=== PATIENT | female | born 1955 | race Asian ===

== ENCOUNTER 2017-11-14 16:34 | Emergency (ER) | payer MEDICARE ==
[~2017-11-14] VITALS: Ht 167.6 cm; Wt 77.3 kg
[2017-11-14] MEDS ORDERED: METF500T6 PO (16:54)
[2017-11-14] MEDS ORDERED: SODIUM CHLORIDE 0.9% 1,000 ML IV ONE (17:30)
[2017-11-14 17:55] LABS: BASOPHILS % (AUTO) 0.6 % (0.0-2.0); EOSINOPHILS % (AUTO) 0.6 % (1.0-6.0); HEMOGLOBIN 11.9 g/dL (12.0-16.0); LYMPHOCYTES # (AUTO) 1.4 K/uL (1.0-4.8); LYMPHOCYTES % (AUTO) 17.4 % (22.0-44.0); MEAN CORPUSCULAR HEMOGLOBIN 29.6 pg (26.0-34.0); MEAN CORPUSCULAR HGB CONC 35.1 G/dL (31.0-37.0); MEAN CORPUSCULAR VOLUME 84 fL (80-100); MONOCYTES # (AUTO) 0.7 K/uL (0.1-1.0); MONOCYTES % (AUTO) 9.5 % (2.0-9.0); NEUTROPHILS # (AUTO) 5.6 K/uL (1.8-7.7); NEUTROPHILS % (AUTO) 71.9 % (40.0-70.0); PLATELET COUNT (AUTO) 184 K/uL (150-450); RED BLOOD CELL COUNT(AUTO) 4.03 MIL/uL (4.00-5.20); RED CELL DISTRIBUTION WIDTH 15.3 % (11.5-14.5)
[2017-11-14 18:09] LABS: ANION GAP 15 mmol/L (8-16); CALCIUM, TOTAL 8.9 mg/dL (8.8-10.5); CARBON DIOXIDE 22 mmol/L (22-29); CHLORIDE 104 mmol/L (98-107); CREATININE 0.91 mg/dL (0.60-1.30); GLOMERULAR FILTR. RATE CALC > 60 mL/min (>60); GLUCOSE,RANDOM 74 mg/dL (70-110); POTASSIUM 4.1 mmol/L (3.5-5.1); SODIUM SERUM 141 mmol/L (136-145); UREA NITROGEN, BLOOD 18 mg/dL (7-18)
[2017-11-14 18:34] LABS: ALANINE AMINOTRANSFERASE 30 U/L (12-78); ALBUMIN 3.3 g/dL (3.4-5.0); ALKALINE PHOSPHATASE 47 U/L (46-116); ASPARTATE AMINOTRANSFERASE 37 U/L (15-37); BILIRUBIN,TOTAL 0.4 mg/dL (0.1-1.0); CKMB RELATIVE INDEX 3.1 % (0.0-4.0); CREATINE KINASE MB 8.4 ng/mL (0-5); CREATINE KINASE, TOTAL 272 U/L (26-192); TOTAL PROTEIN, SERUM 6.1 g/dL (6.4-8.2)
[2017-11-14 19:48] VITALS: BP 129/68
[2017-11-16 10:22] LABS: GLUCOSE,POINT OF CARE 85 MG/DL (70-110)
== END 2017-11-14 20:35 | disposition home or self-care (01) ==
LOC: EMS 17:01
DX: E86.0 Dehydration (principal); E11.9 Type 2 diabetes mellitus without complications; Z79.899 Other long term (current) drug therapy; W18.09XA Striking against other object with subsequent fall, initial encounter; Y93.89 Activity, other specified; Y92.89 Other specified places as the place of occurrence of the external cause; Y99.8 Other external cause status
CPT/HCPCS: 36415; 70450; 71045; 72125; 80053; 82550; 82553; 82962; 84484; 85025; 85730; 93005; 99285; J7030

== ENCOUNTER 2018-05-25 12:44 | Emergency (ER) | payer MEDICAID, MEDICARE ==
[~2018-05-25] VITALS: Ht 160 cm; Wt 61.6 kg
[~2018-05-25 12:44] MED LIST: METF-960 PO
[2018-05-25] MEDS ORDERED: PIMA10TA PO (14:06)
[2018-05-25 15:19] LABS: GLUCOSE,POINT OF CARE 147 MG/DL (70-110)
[2018-05-25 16:30] LABS: APPEARANCE,URINE CLOUDY (CLEAR); GLUCOSE, URINE (UA) NEGATIVE (NEGATIVE); KETONES,URINE 40 mg/dL (NEGATIVE); LEUKOCYTE ESTERASE ,URINE LARGE (NEGATIVE); NITRATE,URINE NEGATIVE (NEGATIVE); OCCULT BLOOD,URINE NEGATIVE (NEGATIVE); PROTEIN,URINE TRACE (NEGATIVE)
[2018-05-25 16:36] LABS: BILIRUBIN,URINE PRELIM. POSITIVE (NEGATIVE)
[2018-05-25 16:45] VITALS: BP 129/72
[2018-05-25 16:57] LABS: BACTERIA,URINE Few /HPF (None Seen); RBC,URINE 0-2 /HPF (0-2); SQUAMOUS EPITHELIAL CELL,UR Many /LPF (None Seen); WBC,URINE 51-100 /HPF (0-5)
[2018-05-25] MEDS ORDERED: CLON-570 PO (21:12)
[2018-05-25] MEDS ORDERED: GABA600T10 PO (21:12)
[2018-05-25] MEDS ORDERED: TRAZ300T2 PO (21:12)
[2018-05-25] MEDS ORDERED: GLIP5TAB11 PO (21:12)
[2018-05-25] MEDS ORDERED: ATOR40TA71 PO (21:12)
== END 2018-05-25 18:01 | disposition left against medical advice (07) ==
LOC: EMS 12:44
DX: M54.5 Low back pain (principal); E11.9 Type 2 diabetes mellitus without complications; F20.9 Schizophrenia, unspecified; F31.9 Bipolar disorder, unspecified; Z79.84 Long term (current) use of oral hypoglycemic drugs; Z79.899 Other long term (current) drug therapy
CPT/HCPCS: 72100; 72220; 87086

== ENCOUNTER 2018-05-25 20:35 | Emergency (ER) | payer MEDICAID ==
[~2018-05-25] VITALS: Ht 167.6 cm; Wt 68.2 kg
[~2018-05-25 20:35] MED LIST changes: +PIMA10TA PO
[2018-05-25 21:05] VITALS: BP 112/70
[2018-05-25] MEDS ORDERED: CLON-570 PO (21:12)
[2018-05-25] MEDS ORDERED: GABA600T10 PO (21:12)
[2018-05-25] MEDS ORDERED: ATOR40TA71 PO (21:12)
[2018-05-25] MEDS ORDERED: GLIP5TAB11 PO (21:12)
[2018-05-25] MEDS ORDERED: TRAZ300T2 PO (21:12)
[2018-05-25 21:23] LABS: BASOPHILS % (AUTO) 0.6 % (0.0-2.0); EOSINOPHILS % (AUTO) 0.3 % (1.0-6.0); HEMATOCRIT 36.9 % (36-46); HEMOGLOBIN 12.9 g/dL (12.0-16.0); LYMPHOCYTES % (AUTO) 16.6 % (22.0-44.0); MEAN CORPUSCULAR HEMOGLOBIN 27.7 pg (26.0-34.0); MEAN CORPUSCULAR HGB CONC 34.9 G/dL (31.0-37.0); MEAN CORPUSCULAR VOLUME 79 fL (80-100); MONOCYTES # (AUTO) 0.7 K/uL (0.1-1.0); MONOCYTES % (AUTO) 11.3 % (2.0-9.0); NEUTROPHILS # (AUTO) 4.5 K/uL (1.8-7.7); NEUTROPHILS % (AUTO) 71.2 % (40.0-70.0); PLATELET COUNT (AUTO) 259 K/uL (150-450); RED BLOOD CELL COUNT(AUTO) 4.64 MIL/uL (4.00-5.20); RED CELL DISTRIBUTION WIDTH 17.9 % (11.5-14.5)
[2018-05-25 21:38] LABS: ANION GAP 11 mmol/L (8-16); CALCIUM, TOTAL 9.9 mg/dL (8.8-10.5); CARBON DIOXIDE 27 mmol/L (22-29); CHLORIDE 101 mmol/L (98-107); CREATININE 0.92 mg/dL (0.60-1.30); GLOMERULAR FILTR. RATE CALC > 60 mL/min (>60); GLUCOSE,RANDOM 215 mg/dL (70-110); POTASSIUM 3.2 mmol/L (3.5-5.1); SODIUM SERUM 139 mmol/L (136-145); UREA NITROGEN, BLOOD 24 mg/dL (7-18)
[2018-05-25 21:39] LABS: TROPONIN I 0.12 ng/mL (0.00-0.05)
[2018-05-25 21:40] LABS: AMMONIA < 10 umol/L (11-32)
[2018-05-25 21:42] LABS: ALANINE AMINOTRANSFERASE 40 U/L (12-78); ALBUMIN 3.8 g/dL (3.4-5.0); ALKALINE PHOSPHATASE 56 U/L (46-116); ASPARTATE AMINOTRANSFERASE 43 U/L (15-37); BILIRUBIN,TOTAL 1.1 mg/dL (0.1-1.0); TOTAL PROTEIN, SERUM 7.6 g/dL (6.4-8.2)
== END 2018-05-26 00:18 | disposition left against medical advice (07) ==
LOC: EMS 20:36
DX: F20.9 Schizophrenia, unspecified (principal); R41.82 Altered mental status, unspecified; F31.9 Bipolar disorder, unspecified; E11.9 Type 2 diabetes mellitus without complications; Z79.84 Long term (current) use of oral hypoglycemic drugs
CPT/HCPCS: 93005

== ENCOUNTER 2018-05-26 04:53 | Emergency (ER) | payer MEDICAID ==
[~2018-05-26] VITALS: Ht 167.6 cm; Wt 68.2 kg
[~2018-05-26 04:53] MED LIST changes: +ATOR40TA71 PO; +CLON-570 PO; +GABA600T10 PO; +GLIP5TAB11 PO; +TRAZ300T2 PO
[2018-05-26 10:28] LABS: BASOPHILS % (AUTO) 0.5 % (0.0-2.0); EOSINOPHILS % (AUTO) 0.4 % (1.0-6.0); HEMATOCRIT 37.9 % (36-46); LYMPHOCYTES # (AUTO) 1.9 K/uL (1.0-4.8); LYMPHOCYTES % (AUTO) 30.5 % (22.0-44.0); MEAN CORPUSCULAR HEMOGLOBIN 27.6 pg (26.0-34.0); MEAN CORPUSCULAR HGB CONC 34.4 G/dL (31.0-37.0); MEAN CORPUSCULAR VOLUME 80 fL (80-100); MONOCYTES % (AUTO) 16.3 % (2.0-9.0); NEUTROPHILS # (AUTO) 3.2 K/uL (1.8-7.7); NEUTROPHILS % (AUTO) 52.3 % (40.0-70.0); PLATELET COUNT (AUTO) 284 K/uL (150-450); PROTHROMBIN TIME 10.7 SEC (9.4-11.6); RED BLOOD CELL COUNT(AUTO) 4.72 MIL/uL (4.00-5.20)
[2018-05-26 10:32] LABS: ANION GAP 11 mmol/L (8-16); CALCIUM, TOTAL 9.9 mg/dL (8.8-10.5); CARBON DIOXIDE 26 mmol/L (22-29); CHLORIDE 102 mmol/L (98-107); CREATININE 0.84 mg/dL (0.60-1.30); GLOMERULAR FILTR. RATE CALC > 60 mL/min (>60); GLUCOSE,RANDOM 175 mg/dL (70-110); POTASSIUM 3.4 mmol/L (3.5-5.1); SODIUM SERUM 139 mmol/L (136-145); UREA NITROGEN, BLOOD 24 mg/dL (7-18)
[2018-05-26 10:52] LABS: B-TYPE NATRIURETIC PEPTIDE 197 pg/mL (0-100)
[2018-05-26 10:55] LABS: ALANINE AMINOTRANSFERASE 39 U/L (12-78); ALBUMIN 3.9 g/dL (3.4-5.0); ALKALINE PHOSPHATASE 66 U/L (46-116); ASPARTATE AMINOTRANSFERASE 41 U/L (15-37); BILIRUBIN,TOTAL 1.1 mg/dL (0.1-1.0); CREATINE KINASE, TOTAL ONLY 120 U/L (26-192); TOTAL PROTEIN, SERUM 7.8 g/dL (6.4-8.2)
[2018-05-26 11:23] VITALS: BP 124/70
== END 2018-05-26 13:18 | disposition left against medical advice (07) ==
LOC: EMS 04:53
DX: R79.89 Other specified abnormal findings of blood chemistry (principal); E11.9 Type 2 diabetes mellitus without complications; F20.9 Schizophrenia, unspecified; R79.1 Abnormal coagulation profile; Z79.899 Other long term (current) drug therapy; Z79.84 Long term (current) use of oral hypoglycemic drugs
CPT/HCPCS: 93005

== ENCOUNTER 2019-03-29 12:31 | Inpatient (IN) | payer MEDICAID, MEDICARE, OTHER ==
[~2019-03-29] VITALS: Ht 167.6 cm; Wt 79.5 kg
[~2019-03-29 12:31] MED LIST changes: -CLON-570 PO; +CLON0.1T2 PO
[2019-03-29] MEDS ORDERED: PIPERACILLIN/TAZO 3.375 GM/D5W 50 ML IV ONE (13:15)
[2019-03-29] MEDS ORDERED: MetroNIDAZOLE 750 MG/NACL 150 ML IV ONE (13:15)
[2019-03-29] MEDS ORDERED: VANCOMYCIN HCL 1 GM/D5% WATER 200 ML IV ONE (13:15)
[2019-03-29] MEDS ORDERED: SODIUM CHLORIDE 0.9% 100 ML ONE (13:23)
[2019-03-29] MEDS ORDERED: IOVERSOL 350 MG/ML 100 ML VIAL ONE (13:23)
[2019-03-29 13:41] LABS: BASOPHILS % (AUTO) 0.7 % (0.0-2.0); EOSINOPHILS % (AUTO) 2.1 % (1.0-6.0); HEMATOCRIT 37.1 % (36-46); HEMOGLOBIN 12.7 g/dL (12.0-16.0); LYMPHOCYTES # (AUTO) 1.5 K/uL (1.0-4.8); LYMPHOCYTES % (AUTO) 19.8 % (22.0-44.0); MEAN CORPUSCULAR HEMOGLOBIN 29.8 pg (26.0-34.0); MEAN CORPUSCULAR HGB CONC 34.2 G/dL (31.0-37.0); MEAN CORPUSCULAR VOLUME 87 fL (80-100); MONOCYTES # (AUTO) 0.8 K/uL (0.1-1.0); MONOCYTES % (AUTO) 10.8 % (2.0-9.0); NEUTROPHILS # (AUTO) 5.1 K/uL (1.8-7.7); NEUTROPHILS % (AUTO) 66.6 % (40.0-70.0); PLATELET COUNT (AUTO) 249 K/uL (150-450); RED BLOOD CELL COUNT(AUTO) 4.26 MIL/uL (4.00-5.20); RED CELL DISTRIBUTION WIDTH 14.9 % (11.5-14.5)
[2019-03-29 13:52] LABS: ANION GAP 10 mmol/L (8-16); CARBON DIOXIDE 23 mmol/L (22-29); CHLORIDE 103 mmol/L (98-107); CREATININE 0.89 mg/dL (0.60-1.30); GLUCOSE,RANDOM 130 mg/dL (70-110); POTASSIUM 4.1 mmol/L (3.5-5.1); SODIUM SERUM 136 mmol/L (136-145); UREA NITROGEN, BLOOD 27 mg/dL (7-18)
[2019-03-29 13:53] LABS: CALCIUM, TOTAL 9.4 mg/dL (8.8-10.5); GLOMERULAR FILTR. RATE CALC > 60 mL/min (>60)
[2019-03-29 13:58] LABS: ALANINE AMINOTRANSFERASE 26 U/L (12-78); ALBUMIN 3.9 g/dL (3.4-5.0); ALKALINE PHOSPHATASE 75 U/L (46-116); ASPARTATE AMINOTRANSFERASE 22 U/L (15-37); BILIRUBIN,TOTAL 0.3 mg/dL (0.1-1.0); LIPASE 71 U/L (73-393); TOTAL PROTEIN, SERUM 7.6 g/dL (6.4-8.2)
[2019-03-29 13:59] LABS: D-DIMER 0.17 mg/L FEU (0.00-0.50)
[2019-03-29 14:00] LABS: LACTIC ACID 0.7 mmol/L (0.4-2.0)
[2019-03-29 16:03] LABS: APPEARANCE,URINE CLEAR (CLEAR); BILIRUBIN,URINE NEGATIVE (NEGATIVE); GLUCOSE, URINE (UA) NEGATIVE (NEGATIVE); KETONES,URINE NEGATIVE (NEGATIVE); LEUKOCYTE ESTERASE ,URINE MODERATE (NEGATIVE); NITRATE,URINE NEGATIVE (NEGATIVE); OCCULT BLOOD,URINE NEGATIVE (NEGATIVE); PROTEIN,URINE NEGATIVE (NEGATIVE); UROBILINOGEN,URINE 0.2 mg/dL (<=1.0)
[2019-03-29 16:16] LABS: BACTERIA,URINE Rare /HPF (None Seen); RBC,URINE 0-2 /HPF (0-2); SQUAMOUS EPITHELIAL CELL,UR Few /LPF (None Seen)
[2019-03-29] MEDS ORDERED: ACETAMINOPHEN 325 MG TABLET PO PRN (16:30)
[2019-03-29] MEDS ORDERED: ONDANSETRON HCL 4 MG/2 ML VIAL IVP PRN (16:30)
[2019-03-29] MEDS ORDERED: 0.9% SODIUM CHLORIDE 10 ML SYRINGE IVP PRN (16:30)
[2019-03-29] MEDS ORDERED: APIXABAN 5 MG TABLET PO ONE (16:30)
[2019-03-29 19:00] VITALS: BP 130/62
[2019-03-30 00:23] VITALS: BP 114/64
[2019-03-30] MEDS ORDERED: ONDANSETRON HCL 4 MG/2 ML VIAL IVP PRN (04:45)
[2019-03-30] MEDS ORDERED: OxyCODONE HCL/ACETAMINOPHEN 5-325 MG TABLET PO PRN ×2 (04:45)
[2019-03-30] MEDS ORDERED: 0.9% SODIUM CHLORIDE 10 ML SYRINGE IVP PRN (04:45)
[2019-03-30 05:09] VITALS: BP 132/69
[2019-03-30] MEDS: CefTRIAXone 1 GM/DEXTROSE 50 ML IV SCH (06:00)
[2019-03-30 07:29] VITALS: BP 128/77
[2019-03-30] MEDS: ATORVASTATIN CALCIUM 40 MG TABLET PO SCH (08:07)
[2019-03-30] MEDS ORDERED: DOCUSATE SODIUM 100 MG CAPSULE PO SCH (09:00)
[2019-03-30] MEDS ORDERED: FAMOTIDINE 20 MG TABLET PO SCH (09:00)
[2019-03-30] MEDS: GABAPENTIN 300 MG CAPSULE PO SCH (09:24)
[2019-03-30] MEDS: APIXABAN 5 MG TABLET PO SCH ×2 (09:24→20:14)
[2019-03-30] MEDS: CloNIDine HCL 0.1 MG TABLET PO SCH (09:24)
[2019-03-30 11:20] VITALS: BP 117/57
[2019-03-30] MEDS ORDERED: ACETAMINOPHEN 325 MG TABLET PO PRN (12:00)
[2019-03-30] MEDS ORDERED: DOCUSATE SODIUM 100 MG CAPSULE PO PRN (12:00)
[2019-03-30] MEDS ORDERED: LIDOCAINE/PF 1% 5 ML VIAL ONE (15:43)
[2019-03-30] MEDS: FAMOTIDINE 20 MG TABLET PO SCH (20:13)
[2019-03-30] MEDS ORDERED: CefTRIAXone SODIUM 1 GM/VIAL IM ONE (20:15)
[2019-03-30] MEDS ORDERED: LIDOCAINE/PF 1% 2 ML VIAL IM ONE (20:15)
[2019-03-30 20:26] VITALS: BP 115/58
[2019-03-30] MEDS ORDERED: TraZODone HCL 150 MG TABLET PO PRN (21:00)
[2019-03-30] MEDS ORDERED: TraZODone HCL 150 MG TABLET PO SCH (21:00)
[2019-03-31 05:13] VITALS: BP 120/63
[2019-03-31] MEDS: CefTRIAXone 1 GM/DEXTROSE 50 ML IV SCH (06:00)
[2019-03-31 07:25] LABS: BASOPHILS % (AUTO) 1.1 % (0.0-2.0); EOSINOPHILS % (AUTO) 4.8 % (1.0-6.0); HEMATOCRIT 37.2 % (36-46); HEMOGLOBIN 12.5 g/dL (12.0-16.0); LYMPHOCYTES # (AUTO) 0.9 K/uL (1.0-4.8); LYMPHOCYTES % (AUTO) 16.7 % (22.0-44.0); MEAN CORPUSCULAR HEMOGLOBIN 29.5 pg (26.0-34.0); MEAN CORPUSCULAR HGB CONC 33.7 G/dL (31.0-37.0); MEAN CORPUSCULAR VOLUME 88 fL (80-100); MONOCYTES # (AUTO) 0.8 K/uL (0.1-1.0); MONOCYTES % (AUTO) 14.9 % (2.0-9.0); NEUTROPHILS # (AUTO) 3.4 K/uL (1.8-7.7); NEUTROPHILS % (AUTO) 62.5 % (40.0-70.0); PLATELET COUNT (AUTO) 215 K/uL (150-450); RED BLOOD CELL COUNT(AUTO) 4.25 MIL/uL (4.00-5.20)
[2019-03-31 07:42] LABS: ANION GAP 6 mmol/L (8-16); CALCIUM, TOTAL 9.1 mg/dL (8.8-10.5); CARBON DIOXIDE 27 mmol/L (22-29); CHLORIDE 103 mmol/L (98-107); CHOLESTEROL 171 mg/dL (131-200); CREATININE 0.93 mg/dL (0.60-1.30); GLOMERULAR FILTR. RATE CALC > 60 mL/min (>60); GLUCOSE,RANDOM 145 mg/dL (70-110); HDL CHOLESTEROL 65 mg/dL (40-60); POTASSIUM 4.8 mmol/L (3.5-5.1); SODIUM SERUM 136 mmol/L (136-145); TRIGLYCERIDES 64 mg/dL (15-150); UREA NITROGEN, BLOOD 22 mg/dL (7-18)
[2019-03-31 07:43] LABS: CHOL/HDL RATIO 2.6 (3.9-5.7); LDL CHOL (CALC.) 93 mg/dL (0-130)
[2019-03-31 08:24] VITALS: BP 133/68
[2019-03-31 09:30] VITALS: BP 128/75
[2019-03-31] MEDS: CloNIDine HCL 0.1 MG TABLET PO SCH (09:46)
[2019-03-31] MEDS: APIXABAN 5 MG TABLET PO SCH (09:47)
[2019-03-31] MEDS: ATORVASTATIN CALCIUM 40 MG TABLET PO SCH (09:48)
[2019-03-31] MEDS: GABAPENTIN 300 MG CAPSULE PO SCH (09:49)
[2019-03-31] MEDS: FAMOTIDINE 20 MG TABLET PO SCH (09:50)
[2019-03-31] MEDS ORDERED: CefTRIAXone SODIUM 1 GM/VIAL IM SCH ×2 (11:00→21:00)
[2019-03-31] MEDS ORDERED: LIDOCAINE/PF 1% 2 ML VIAL IM SCH ×2 (11:00→21:00)
[2019-03-31] MEDS ORDERED: APIX5TAB PO ×3 (14:41→14:43)
[2019-03-31] MEDS ORDERED: CEPH500 PO (14:45)
== END 2019-03-31 15:15 | disposition home or self-care (01) | DRG 841 ==
LOC: EMS 12:36 → 4E 17:35 → EMS 18:08
PROVIDERS: ADMIT Internal Medicine; ATTEND Internal Medicine
DX: C85.85 Other specified types of non-Hodgkin lymphoma, lymph nodes of inguinal region and lower limb (principal); N39.0 Urinary tract infection, site not specified; L03.314 Cellulitis of groin; I82.413 Acute embolism and thrombosis of femoral vein, bilateral; I89.0 Lymphedema, not elsewhere classified; E11.65 Type 2 diabetes mellitus with hyperglycemia; E78.00 Pure hypercholesterolemia, unspecified; I10 Essential (primary) hypertension; E86.0 Dehydration; F31.9 Bipolar disorder, unspecified; G20 Parkinson's disease; R19.00 Intra-abdominal and pelvic swelling, mass and lump, unspecified site; F17.200 Nicotine dependence, unspecified, uncomplicated; F20.9 Schizophrenia, unspecified; Z79.01 Long term (current) use of anticoagulants
CPT/HCPCS: 51702; 74177; 83036; 83605; 84145; 85379; 86850; 86900; 86901; 87040; 87086; 93005; 93926; 93971; 96365; 96367; G0378; J0696; J2001; J2543; J3370; J3490; J7050

== ENCOUNTER 2019-06-25 11:07 | Emergency (ER) | payer MEDICARE, MEDICAID ==
[~2019-06-25] VITALS: Ht 167.6 cm; Wt 82.2 kg
[~2019-06-25 11:07] MED LIST changes: +APIX5TAB PO; +CEPH500 PO; -CLON0.1T2 PO; +CLON0.1T83 PO
[2019-06-25 12:42] VITALS: BP 134/73
[2019-06-25] MEDS ORDERED: LIDOCAINE/PF 1% 2 ML VIAL IM ONE (13:00)
[2019-06-25] MEDS ORDERED: DOXYCYCLINE HYCLATE 100 MG CAPSULE PO ONE (13:00)
[2019-06-25] MEDS ORDERED: CefTRIAXone SODIUM 1 GM/VIAL IM ONE (13:00)
== END 2019-06-25 13:40 | disposition home or self-care (01) ==
LOC: EDSEX → EMS 11:10
DX: I82.401 Acute embolism and thrombosis of unspecified deep veins of right lower extremity (principal); C85.93 Non-Hodgkin lymphoma, unspecified, intra-abdominal lymph nodes; L02.211 Cutaneous abscess of abdominal wall; L03.311 Cellulitis of abdominal wall; G20 Parkinson's disease; F31.9 Bipolar disorder, unspecified; E11.9 Type 2 diabetes mellitus without complications; F20.9 Schizophrenia, unspecified; Z79.84 Long term (current) use of oral hypoglycemic drugs
CPT/HCPCS: 82962; 96372; 99283; J0696; J3490

== ENCOUNTER 2019-06-27 11:33 | Inpatient (IN) | payer MEDICARE, MEDICAID ==
[~2019-06-27] VITALS: Ht 167.6 cm; Wt 81.0 kg
[~2019-06-27 11:33] MED LIST changes: -CEPH500 PO
[2019-06-27 12:23] LABS: BASOPHILS % (AUTO) 0.7 % (0.0-2.0); EOSINOPHILS % (AUTO) 0.8 % (1.0-6.0); HEMATOCRIT 35.1 % (36-46); HEMOGLOBIN 11.9 g/dL (12.0-16.0); LYMPHOCYTES # (AUTO) 1.2 K/uL (1.0-4.8); LYMPHOCYTES % (AUTO) 11.3 % (22.0-44.0); MEAN CORPUSCULAR HEMOGLOBIN 29.1 pg (26.0-34.0); MEAN CORPUSCULAR VOLUME 86 fL (80-100); MONOCYTES # (AUTO) 1.1 K/uL (0.1-1.0); MONOCYTES % (AUTO) 9.9 % (2.0-9.0); NEUTROPHILS # (AUTO) 8.3 K/uL (1.8-7.7); NEUTROPHILS % (AUTO) 77.3 % (40.0-70.0); PLATELET COUNT (AUTO) 235 K/uL (150-450); RED CELL DISTRIBUTION WIDTH 14.2 % (11.5-14.5)
[2019-06-27 12:32] LABS: POTASSIUM 4.1 mmol/L (3.5-5.1)
[2019-06-27 12:38] LABS: ALBUMIN 3.5 g/dL (3.4-5.0); BILIRUBIN,TOTAL 0.5 mg/dL (0.1-1.0); TOTAL PROTEIN, SERUM 7.1 g/dL (6.4-8.2)
[2019-06-27] MEDS ORDERED: VANCOMYCIN HCL 1 GM/D5% WATER 200 ML IV ONE (13:45)
[2019-06-27] MEDS ORDERED: ACETAMINOPHEN 325 MG TABLET PO PRN ×2 (13:45→19:00)
[2019-06-27] MEDS ORDERED: ONDANSETRON HCL 4 MG/2 ML VIAL IVP PRN ×2 (13:45→19:00)
[2019-06-27] MEDS ORDERED: 0.9% SODIUM CHLORIDE 10 ML SYRINGE IVP PRN ×2 (13:45→19:00)
[2019-06-27] MEDS ORDERED: IOVERSOL 320 MG/ML 100 ML VIAL ONE (14:09)
[2019-06-27] MEDS ORDERED: SODIUM CHLORIDE 0.9% 100 ML ONE (14:09)
[2019-06-27 17:30] VITALS: BP 106/58
[2019-06-27] MEDS ORDERED: INFLUENZA VIRUS VACCINE QVS 2019-20 (3YR+)/PF 60 MCG/0.5 ML SYRINGE IM ONE (17:45)
[2019-06-27] MEDS ORDERED: ZOLPIDEM TARTRATE 5 MG TABLET PO PRN (19:00)
[2019-06-27] MEDS ORDERED: DEXTROSE 50%-WATER 25 GM/50 ML SYRINGE IVP PRN (19:00)
[2019-06-27] MEDS ORDERED: INSULIN LISPRO 100 UNITS/ML SQ PRN (19:00)
[2019-06-27] MEDS ORDERED: POTASSIUM CHLORIDE 20 MEQ ER TABLET PO PRN (19:00)
[2019-06-27] MEDS ORDERED: POTASSIUM CHL 10 MEQ/WATER 50 ML IV PRN (19:00)
[2019-06-27] MEDS ORDERED: MAGNESIUM SULFATE 2 GM/WATER 50 ML IV PRN (19:00)
[2019-06-27] MEDS ORDERED: MAGNESIUM SULFATE 4 GM/WATER 100 ML IV PRN (19:00)
[2019-06-27] MEDS ORDERED: MAGNESIUM OXIDE 400 MG TABLET PO PRN (19:00)
[2019-06-27 19:55] VITALS: BP 112/61
[2019-06-27] MEDS: TraZODone HCL 150 MG TABLET PO SCH (21:00)
[2019-06-27] MEDS: PANTOPRAZOLE SODIUM 40 MG DR TABLET PO SCH ×2 (21:00→21:31)
[2019-06-27] MEDS ORDERED: APIXABAN 5 MG TABLET PO SCH (21:00)
[2019-06-27] MEDS ORDERED: VANCOMYCIN HCL 500 MG in DEXTROSE 5%-WATER 100 ML IV ONE (21:00)
[2019-06-27] MEDS: ATORVASTATIN CALCIUM 40 MG TABLET PO SCH ×2 (21:00→21:31)
[2019-06-27] MEDS: DOCUSATE SODIUM 100 MG CAPSULE PO SCH ×2 (21:00→21:32)
[2019-06-27] MEDS ORDERED: SODIUM CHLORIDE 0.9% 250 ML IV ONE (21:30)
[2019-06-27] MEDS: APIXABAN 5 MG TABLET PO SCH (21:32)
[2019-06-27] MEDS: GABAPENTIN 300 MG CAPSULE PO SCH (21:32)
[2019-06-27] MEDS: PIPERACILLIN/TAZO 3.375 GM/D5W 50 ML IV SCH (21:34)
[2019-06-28 00:37] VITALS: BP 119/62
[2019-06-28] MEDS: PIPERACILLIN/TAZO 3.375 GM/D5W 50 ML IV SCH ×4 (01:39→19:56)
[2019-06-28 07:56] LABS: ANION GAP 8 mmol/L (8-16); CALCIUM, TOTAL 9.1 mg/dL (8.8-10.5); CARBON DIOXIDE 24 mmol/L (22-29); CHLORIDE 104 mmol/L (98-107); GLOMERULAR FILTR. RATE CALC > 60 mL/min (>60); GLUCOSE,RANDOM 151 mg/dL (70-110); POTASSIUM 4.3 mmol/L (3.5-5.1); SODIUM SERUM 136 mmol/L (136-145); UREA NITROGEN, BLOOD 18 mg/dL (7-18)
[2019-06-28] MEDS: MetFORMIN HCL 500 MG TABLET PO SCH ×2 (08:00→18:00)
[2019-06-28] MEDS: VANCOMYCIN HCL 750 MG in DEXTROSE 5%-WATER 250 ML IV SCH ×2 (08:36→20:43)
[2019-06-28] MEDS: CloNIDine HCL 0.1 MG TABLET PO SCH (08:38)
[2019-06-28] MEDS: GABAPENTIN 300 MG CAPSULE PO SCH ×3 (08:38→20:42)
[2019-06-28] MEDS: APIXABAN 5 MG TABLET PO SCH ×2 (08:38→20:42)
[2019-06-28] MEDS: DOCUSATE SODIUM 100 MG CAPSULE PO SCH ×2 (08:39→20:43)
[2019-06-28] MEDS: PANTOPRAZOLE SODIUM 40 MG DR TABLET PO SCH (08:39)
[2019-06-28 09:23] VITALS: BP 109/58
[2019-06-28 11:21] VITALS: BP 96/69
[2019-06-28 15:52] VITALS: BP 121/67
[2019-06-28 19:47] VITALS: BP 115/61
[2019-06-28] MEDS: TraZODone HCL 150 MG TABLET PO SCH (20:44)
[2019-06-28] MEDS: ATORVASTATIN CALCIUM 40 MG TABLET PO SCH (20:44)
[2019-06-28 23:56] VITALS: BP 109/49
[2019-06-29] MEDS: PIPERACILLIN/TAZO 3.375 GM/D5W 50 ML IV SCH ×4 (00:58→22:52)
[2019-06-29] MEDS ORDERED: SODIUM CHLORIDE 0.9% 250 ML IV ONE (02:32)
[2019-06-29 04:30] VITALS: BP 118/58
[2019-06-29] MEDS: MetFORMIN HCL 500 MG TABLET PO SCH ×2 (08:00→18:00)
[2019-06-29 08:20] LABS: CALCIUM, TOTAL 9.2 mg/dL (8.8-10.5); CREATININE 1.04 mg/dL (0.60-1.30); POTASSIUM 4.3 mmol/L (3.5-5.1); VANCOMYCIN,RANDOM 13.5 mcg/mL (25.0-50.0)
[2019-06-29 08:50] VITALS: BP 108/68
[2019-06-29] MEDS: PANTOPRAZOLE SODIUM 40 MG DR TABLET PO SCH (09:00)
[2019-06-29] MEDS: DOCUSATE SODIUM 100 MG CAPSULE PO SCH ×2 (09:00→21:00)
[2019-06-29] MEDS: CloNIDine HCL 0.1 MG TABLET PO SCH (09:08)
[2019-06-29] MEDS: APIXABAN 5 MG TABLET PO SCH ×2 (09:09→21:49)
[2019-06-29] MEDS: GABAPENTIN 300 MG CAPSULE PO SCH ×3 (09:09→21:49)
[2019-06-29] MEDS: VANCOMYCIN HCL 750 MG in DEXTROSE 5%-WATER 250 ML IV SCH (09:10)
[2019-06-29 11:27] VITALS: BP 107/63
[2019-06-29 16:16] VITALS: BP 100/57
[2019-06-29] MEDS: VANCOMYCIN HCL 1 GM/D5% WATER 200 ML IV SCH (20:29)
[2019-06-29 20:30] VITALS: BP 110/64
[2019-06-29] MEDS: TraZODone HCL 150 MG TABLET PO SCH (21:00)
[2019-06-29] MEDS: ATORVASTATIN CALCIUM 40 MG TABLET PO SCH (21:00)
[2019-06-29 23:54] VITALS: BP 116/60
[2019-06-30] MEDS: PIPERACILLIN/TAZO 3.375 GM/D5W 50 ML IV SCH ×2 (03:01→08:00)
[2019-06-30 05:23] VITALS: BP 132/67
[2019-06-30 07:34] VITALS: BP 114/62
[2019-06-30 07:45] LABS: ANION GAP -1 mmol/L (8-16); CALCIUM, TOTAL 9.2 mg/dL (8.8-10.5); CARBON DIOXIDE 29 mmol/L (22-29); CHLORIDE 100 mmol/L (98-107); CREATININE 0.93 mg/dL (0.60-1.30); GLOMERULAR FILTR. RATE CALC > 60 mL/min (>60); GLUCOSE,RANDOM 176 mg/dL (70-110); POTASSIUM 4.1 mmol/L (3.5-5.1); SODIUM SERUM 128 mmol/L (136-145); UREA NITROGEN, BLOOD 21 mg/dL (7-18)
[2019-06-30] MEDS: MetFORMIN HCL 500 MG TABLET PO SCH (08:00)
[2019-06-30] MEDS: GABAPENTIN 300 MG CAPSULE PO SCH (08:47)
[2019-06-30] MEDS: CloNIDine HCL 0.1 MG TABLET PO SCH (08:47)
[2019-06-30] MEDS: APIXABAN 5 MG TABLET PO SCH (08:47)
[2019-06-30] MEDS: VANCOMYCIN HCL 1 GM/D5% WATER 200 ML IV SCH (08:48)
[2019-06-30] MEDS: DOCUSATE SODIUM 100 MG CAPSULE PO SCH (08:50)
[2019-06-30] MEDS: PANTOPRAZOLE SODIUM 40 MG DR TABLET PO SCH (08:51)
[2019-06-30] MEDS ORDERED: VANC250C13 IV (10:47)
[2019-06-30 11:35] VITALS: BP 124/74
== END 2019-06-30 12:20 | disposition home or self-care (01) | DRG 603 ==
LOC: EDSEX → EMS 11:37 → 6N 16:03 → UNDOADMIN 17:05 → 6N 17:05
PROVIDERS: ADMIT Internal Medicine; ATTEND Internal Medicine
PROC: B54MZZA Ultrasonography of Right Upper Extremity Veins, Guidance (ICD-10-PCS; principal; 2019-06-30)
PROC: 05HY33Z Insertion of Infusion Device into Upper Vein, Percutaneous Approach (ICD-10-PCS; 2019-06-30)
DX: L03.311 Cellulitis of abdominal wall (principal); C85.93 Non-Hodgkin lymphoma, unspecified, intra-abdominal lymph nodes; I82.501 Chronic embolism and thrombosis of unspecified deep veins of right lower extremity; F20.9 Schizophrenia, unspecified; E78.5 Hyperlipidemia, unspecified; G20 Parkinson's disease; F31.9 Bipolar disorder, unspecified; E11.9 Type 2 diabetes mellitus without complications; R19.09 Other intra-abdominal and pelvic swelling, mass and lump; R59.9 Enlarged lymph nodes, unspecified; Z91.19 Patient's noncompliance with other medical treatment and regimen
CPT/HCPCS: 36245; 36569; 74177; 76937; 83735; 87040; J2543; J3370; J7050; J7060

== ENCOUNTER 2019-07-10 09:06 | Emergency (ER) | payer MEDICARE, MEDICAID ==
[~2019-07-10] VITALS: Ht 167.6 cm; Wt 81.0 kg
[~2019-07-10 09:06] MED LIST changes: +VANC250C13 IV
[2019-07-10 10:30] VITALS: BP 115/71
== END 2019-07-10 10:36 | disposition home or self-care (01) ==
LOC: EDSEX → EMS 09:09
DX: L02.211 Cutaneous abscess of abdominal wall (principal); F31.9 Bipolar disorder, unspecified; F20.9 Schizophrenia, unspecified; Z48.00 Encounter for change or removal of nonsurgical wound dressing

== ENCOUNTER 2019-07-20 10:44 | Emergency (ER) | payer MEDICARE, MEDICAID ==
[~2019-07-20] VITALS: Ht 167.6 cm; Wt 85.9 kg
[~2019-07-20 10:44] MED LIST changes: -ATOR40TA71 PO; -GLIP5TAB11 PO; -METF-960 PO; -PIMA10TA PO; -TRAZ300T2 PO
[2019-07-20 10:47] VITALS: BP 122/79
== END 2019-07-20 11:01 | disposition left against medical advice (07) ==
LOC: EDSEX → EMS 10:44
DX: Z00.00 Encounter for general adult medical examination without abnormal findings (principal); Z53.21 Procedure and treatment not carried out due to patient leaving prior to being seen by health care provider

== ENCOUNTER 2019-07-21 14:15 | Emergency (ER) | payer MEDICARE, MEDICAID ==
[~2019-07-21] VITALS: Ht 167.6 cm; Wt 86.4 kg
[2019-07-21 16:30] VITALS: BP 110/62
== END 2019-07-21 17:07 | disposition home or self-care (01) ==
LOC: EMS 14:16 → EDSEX 14:16 → EMS 17:07
DX: Z45.2 Encounter for adjustment and management of vascular access device (principal); F31.9 Bipolar disorder, unspecified; F20.9 Schizophrenia, unspecified

== ENCOUNTER 2019-07-22 16:32 | Emergency (ER) | payer MEDICARE, MEDICAID ==
[~2019-07-22] VITALS: Ht 167.6 cm; Wt 81.8 kg
[2019-07-22 19:11] VITALS: BP 134/80
[2019-07-22 19:15] LABS: BASOPHILS % (AUTO) 1.1 % (0.0-2.0); EOSINOPHILS % (AUTO) 3.2 % (1.0-6.0); HEMATOCRIT 33.6 % (36-46); HEMOGLOBIN 11.2 g/dL (12.0-16.0); LYMPHOCYTES # (AUTO) 1.8 K/uL (1.0-4.8); LYMPHOCYTES % (AUTO) 30.6 % (22.0-44.0); MEAN CORPUSCULAR HEMOGLOBIN 27.7 pg (26.0-34.0); MEAN CORPUSCULAR HGB CONC 33.4 G/dL (31.0-37.0); MEAN CORPUSCULAR VOLUME 83 fL (80-100); MONOCYTES % (AUTO) 15.8 % (2.0-9.0); NEUTROPHILS % (AUTO) 49.3 % (40.0-70.0); PLATELET COUNT (AUTO) 209 K/uL (150-450); RED BLOOD CELL COUNT(AUTO) 4.05 MIL/uL (4.00-5.20); RED CELL DISTRIBUTION WIDTH 13.9 % (11.5-14.5)
[2019-07-22 19:28] LABS: PROTHROMBIN TIME 10.2 SEC (9.4-11.6)
[2019-07-22 19:37] LABS: CALCIUM, TOTAL 9.1 mg/dL (8.8-10.5); CREATININE 0.97 mg/dL (0.60-1.30); POTASSIUM 4.4 mmol/L (3.5-5.1)
[2019-07-22 19:43] LABS: ALBUMIN 3.4 g/dL (3.4-5.0); BILIRUBIN,TOTAL 0.3 mg/dL (0.1-1.0); TOTAL PROTEIN, SERUM 6.9 g/dL (6.4-8.2)
== END 2019-07-22 20:29 | disposition left against medical advice (07) ==
LOC: EMS 16:35
DX: Z45.2 Encounter for adjustment and management of vascular access device (principal); G20 Parkinson's disease; F31.9 Bipolar disorder, unspecified; F20.9 Schizophrenia, unspecified; F17.210 Nicotine dependence, cigarettes, uncomplicated; Z79.899 Other long term (current) drug therapy; Z79.01 Long term (current) use of anticoagulants

== ENCOUNTER 2019-07-26 09:27 | Emergency (ER) | payer MEDICARE, MEDICAID ==
[~2019-07-26] VITALS: Ht 165.1 cm; Wt 81.8 kg
[2019-07-26 14:00] VITALS: BP 148/98
[2019-07-26 18:42] VITALS: BP 152/117
== END 2019-07-26 14:57 | disposition home or self-care (01) ==
LOC: EMS 09:28
DX: L03.115 Cellulitis of right lower limb (principal); C83.05 Small cell B-cell lymphoma, lymph nodes of inguinal region and lower limb; F31.9 Bipolar disorder, unspecified; F20.9 Schizophrenia, unspecified; F17.210 Nicotine dependence, cigarettes, uncomplicated; Z45.2 Encounter for adjustment and management of vascular access device
CPT/HCPCS: 36569; 76937

== ENCOUNTER 2019-07-31 10:36 | Emergency (ER) | payer MEDICARE, MEDICAID ==
[~2019-07-31] VITALS: Ht 167.6 cm; Wt 85.0 kg
[2019-07-31] MEDS ORDERED: SULFAMETHOX/TRIMETH DS 800-160 MG/TABLET PO ONE (12:45)
[2019-07-31] MEDS ORDERED: CEPHALEXIN MONOHYDRATE 500 MG CAPSULE PO ONE (12:45)
[2019-07-31 13:04] VITALS: BP 123/76
== END 2019-07-31 13:08 | disposition home or self-care (01) ==
LOC: EMS 10:36
DX: L03.311 Cellulitis of abdominal wall (principal); G20 Parkinson's disease; F31.9 Bipolar disorder, unspecified; F20.9 Schizophrenia, unspecified; F17.210 Nicotine dependence, cigarettes, uncomplicated; Z79.899 Other long term (current) drug therapy
CPT/HCPCS: 99406